=== PATIENT | male | born 1975 | race Caucasian/White ===

== ENCOUNTER 2022-05-04 11:06 | Outpatient (CLI) | payer BC ==
[~2022-05-04] VITALS: Ht 175.3 cm; Wt 60.9 kg
[2022-05-04] MEDS ORDERED: TOPROL XL 25MG25 MG PO (12:23)
[2022-05-04 12:34] LABS: HEMATOCRIT 40.6 % (42.0-52.0); HEMOGLOBIN 13.9 g/dl (13.5-18.0); MEAN CELL VOLUME 88 fl (80.0-100.0); MEAN CORPUSCULAR HEMOGLOBIN 30 pg (27-31); MEAN CORPUSCULAR HGB CONC 34 g/dl (33.0-37.0); MEAN PLATELET VOLUME 9.7 fl (7.4-10.4); PLATELET COUNT 248 K/mm3 (130-400); REDCELL DISTRIBUTION WIDTH-CV 12.1 % (11.5-14.5)
[2022-05-04 12:44] LABS: PROTHROMBIN TIME 11.8 SECONDS (9.7-12.8)
[2022-05-04 12:49] LABS: CALCIUM 9.4 mg/dL (8.4-10.2); CREATININE, serum 1.12 mg/dL (0.72-1.25); POTASSIUM 4.3 mmol/L (3.5-4.5)
[2022-05-04 13:30] VITALS: BP 96/69; PULSE 68
[2022-05-04 13:45] VITALS: BP 82/56; PULSE 64
[2022-05-04 14:00] VITALS: BP 106/80; PULSE 59
[2022-05-04 14:15] VITALS: BP 107/77; PULSE 64
[2022-05-04 14:30] VITALS: BP 113/77; PULSE 65
--- NOTE | 2022-05-04 14:35 | NUR ---
DC instructions were reviewed with pt, he expressed understanding. He is steady on feet through dept to restroom. He's tolerated PO fluids without issue. IV DC'd, site wrapped with coban. He is assisted out to 's car by wheelchair.
== END 2022-05-04 14:35 | disposition home or self-care (01) ==
LOC: COL.RAD 11:06
PROVIDERS: Internal Medicine Cardiovascular Disease
DX: I34.0 Nonrheumatic mitral (valve) insufficiency (principal)
CPT/HCPCS: J2704; J7120

== ENCOUNTER → 2022-10-03 | Outpatient (RCR) | payer BC ==
[~2022-10-03] MED LIST: TOPROL XL 25MG25 MG PO
== END | disposition home or self-care (01) ==
LOC: COL.CR
DX: Z48.812 Encounter for surgical aftercare following surgery on the circulatory system (principal); Z98.890 Other specified postprocedural states

== ENCOUNTER 2022-10-26 14:07 | Outpatient (RCR) | payer BC | END 2022-10-31 | disposition home or self-care (01) | LOC: COL.CR | DX: Z48.812 Encounter for surgical aftercare following surgery on the circulatory system (principal); Z98.890 Other specified postprocedural states ==

== ENCOUNTER 2022-11-28 14:27 | Outpatient (RCR) | payer BC | END 2022-12-01 | disposition home or self-care (01) | LOC: COL.CR | DX: Z48.812 Encounter for surgical aftercare following surgery on the circulatory system (principal); Z95.4 Presence of other heart-valve replacement ==

== ENCOUNTER 2022-12-28 15:00 | Outpatient (RCR) | payer BC | END 2022-12-31 | disposition home or self-care (01) | LOC: COL.CR | DX: Z48.812 Encounter for surgical aftercare following surgery on the circulatory system (principal); Z98.890 Other specified postprocedural states ==

== ENCOUNTER 2023-01-25 14:29 | Outpatient (RCR) | payer BC | END 2023-01-30 15:59 | disposition home or self-care (01) | LOC: COL.CR 14:29 | DX: Z48.812 Encounter for surgical aftercare following surgery on the circulatory system (principal) ==

== ENCOUNTER 2024-04-10 06:40 | Day surgery (SDC) | payer BC ==
[~2024-04-10] VITALS: Ht 175.3 cm; Wt 66.7 kg
[~2024-04-10 06:40] MED LIST changes: +LR 1,000 ML IV SCH; +Ondansetron 4 MG/2 ML VIAL IV PRN
[2024-04-10 07:02] VITALS: BP 110/83; PULSE 99; TEMP 97.4
[2024-04-10] MEDS ORDERED: Lidocaine PF 2% (20 MG/ML) 5 ML VIAL ONE (08:32)
[2024-04-10 09:15] VITALS: BP 100/72; PULSE 80; TEMP 97.1
[2024-04-10 09:30] VITALS: BP 112/77; PULSE 76
[2024-04-10 09:45] VITALS: BP 124/85; PULSE 76
--- NOTE | 2024-04-10 10:00 | NUR ---
0915 RETURNS TO ROOM 2 PER CART. AWAKE, ALERT, RESP UNLABORED. AMBULATES TO RECLINER WITH STANDBY ASSIST. DENIES NAUSEA OR ABD PAIN. VITAL SIGNS OBTAINED. CALL LIGHT AT SIDE. 0930 TOLERATES PO WATER WITHOUT NAUSEA. DISCHARGE INSTRUCTIONS REVIEWED. PATIENT VERBALIZES UNDERSTANDING. COPY PROVIDED IN DISCHARGE FOLDER. 0917 DR. KELLEY HERE TO VISIT WITH PATIENT 0937 DRESSES SELF
== END 2024-04-10 10:00 | disposition home or self-care (01) ==
LOC: SDCO 06:40
DX: Z12.11 Encounter for screening for malignant neoplasm of colon (principal)
CPT/HCPCS: J2704; J7120